=== PATIENT | male | born 1980 | race Caucasian/White ===

== ENCOUNTER 2016-08-29 12:53 | Emergency (ER) | payer MEDICAID, OTHER ==
[2016-08-29 14:19] LABS: URINE BILIRUBIN NEGATIVE (NEGATIVE); URINE BLOOD NEGATIVE (NEGATIVE); URINE GLUCOSE (UA) NEGATIVE (NEGATIVE); URINE LEUKOCYTE ESTERASE NEGATIVE (NEGATIVE); URINE NITRITE NEGATIVE (NEGATIVE); URINE PROTEIN NEGATIVE (NEGATIVE); URINE UROBILINOGEN NORMAL (0-1 mg/dl)
[2016-08-29 14:24] LABS: URINE APPEARANCE CLEAR; URINE COLOR YELLOW
[2016-08-29] MEDS ORDERED: ACETAMINOPHEN 325 MG TABLET ONE (14:35)
[2016-08-29] MEDS ORDERED: SODIUM CHLORIDE 0.9% 1,000 ML ONE (14:35)
[2016-08-29 14:52] LABS: ABSOLUTE NEUTROPHIL COUNT 9.6 K/mm3 (1.8-7.7); BASO # 0.1 K/mm3 (0.0-0.2); EOS # 0.2 (0.0-0.5); EOS % 1.2 % (0.9-2.9); HEMATOCRIT 42.1 % (32.0-52.0); HEMOGLOBIN 14.5 gm/l (14.0-18.0); IMM NEUT # 0.1 K/mm3 (0-0.2); IMM NEUT% 0.4 % (0-1); MEAN CELL VOLUME 88.3 fl (80.0-94.0); MEAN CORPUSCULAR HEMOGLOBIN 30.4 pg (27.0-31.0); MEAN CORPUSCULAR HGB CONC 34.4 g/dl (33.0-37.0); MEAN PLATELET VOLUME 10.8 fl (7.4-10.4); MONO # 0.7 (0.0-0.8); MONO % 5.6 % (4-12); NEUT % 75.8 % (43-75); PLATELET COUNT 228 K/mm3 (130-400); RED CELL DISTRIBUTION WIDTH 11.9 % (11.5-14.5)
[2016-08-29 15:11] LABS: ALB/GLOB RATIO 1.8 (>1.0); ALBUMIN 4.4 gm/dL (3.5-5.7); CALCIUM 9.3 mg/dL (8.6-10.3)
[2016-08-29] MEDS ORDERED: OXYCODONE/ACETAMINOPHEN 5/325 MG TABLET ONE (15:46)
[2016-08-29] MEDS ORDERED: LIDOCAINE 5% PATCH TD ONE (16:00)
--- NOTE | 2016-08-29 16:19 | RAD ---
History: Worsening chest tightness with dyspnea. Comparison: None. Technique: 2 views Findings: The soft tissue and bony structures are unremarkable. The heart size is appropriate. No infiltrate, effusion or pneumothorax is observed. The hilar and mediastinal structures are normal. Impression: 1. A negative 2 view chest
[2016-08-30 14:31] LABS: CHLAMYDIA BD Negative (Negative); N.GONORRHOEAE BD Negative (Negative); SOURCE Urine (())
== END 2016-08-29 16:35 | disposition home or self-care (01) ==
LOC: ED 12:53
DX: R10.9 Unspecified abdominal pain (principal); B34.9 Viral infection, unspecified; F17.210 Nicotine dependence, cigarettes, uncomplicated
CPT/HCPCS: 87491; 87591; 85025; 87086; 80053; 81003; 71020; 99283 ×2; A9270 ×3; J7030